=== PATIENT | male | born 2000 | race Caucasian/White ===

== ENCOUNTER 2018-07-20 12:05 | Emergency (ER) | payer BC ==
[~2018-07-20] VITALS: Ht 165.1 cm; Wt 61.4 kg
[2018-07-20] MEDS ORDERED: PROAIR HFA0.09 MG/AC IH (12:28)
[2018-07-20 12:56] LABS: EOS # 0.1 (0.04-0.40); EOS % 1.4 % (0.0-4.0); HEMATOCRIT 46.9 % (36.0-47.0); HEMOGLOBIN 15.8 g/dL (12.5-16.1); LYMPH# 1.3 (1.50-4.00); MEAN CELL VOLUME 88 fl (78-95); MEAN CORPUSCULAR HEMOGLOBIN 30 pg (26-32); MEAN CORPUSCULAR HGB CONC 34 g/dL (33-37); MEAN PLATELET VOLUME 9.8 fl (7.4-10.4); MONO # 0.5 (0.20-0.80); NEU # 3.7 (1.40-6.50); PLATELET COUNT 244 K/mm3 (130-400); RED BLOOD COUNT 5.34 M/mm3 (4.20-5.60); RED CELL DISTRIBUTION WIDTH 12.4 % (11.5-14.5); WHITE BLOOD COUNT 5.6 K/mm3 (4.8-10.8)
[2018-07-20 13:09] LABS: ALBUMIN 5.1 g/dL (3.5-5.0); CALCIUM 10.5 mg/dL (8.4-10.2); POTASSIUM 3.6 mmol/L (3.6-5.0); TOTAL BILIRUBIN 1.6 mg/dL (0.2-1.3); TOTAL PROTEIN 8.2 g/dL (6.3-8.2)
[2018-07-20] MEDS ORDERED: KLONOPIN 0.5MG0.5 MG PO (13:57)
[2018-07-20 14:10] VITALS: BP 101/69
== END 2018-07-20 14:10 | disposition home or self-care (01) ==
LOC: ED 12:05
PROVIDERS: Nurse Practitioner Primary Care
DX: F41.0 Panic disorder [episodic paroxysmal anxiety] (principal); F17.210 Nicotine dependence, cigarettes, uncomplicated

== ENCOUNTER 2018-08-03 15:27 | Emergency (ER) | payer BC ==
[~2018-08-03] VITALS: Ht 165.1 cm; Wt 60.9 kg
[~2018-08-03 15:27] MED LIST: KLONOPIN 0.5MG0.5 MG PO; PROAIR HFA0.09 MG/AC IH
[2018-08-03 17:05] LABS: EOS % 0.5 % (0.0-4.0); HEMATOCRIT 47.2 % (36.0-47.0); HEMOGLOBIN 15.9 g/dL (12.5-16.1); LYMPH# 1.5 (1.50-4.00); MEAN CELL VOLUME 89 fl (78-95); MEAN CORPUSCULAR HEMOGLOBIN 30 pg (26-32); MEAN CORPUSCULAR HGB CONC 34 g/dL (33-37); MEAN PLATELET VOLUME 9.5 fl (7.4-10.4); MONO # 0.5 (0.20-0.80); NEU # 5.5 (1.40-6.50); PLATELET COUNT 287 K/mm3 (130-400); RED BLOOD COUNT 5.31 M/mm3 (4.20-5.60); RED CELL DISTRIBUTION WIDTH 12.6 % (11.5-14.5); WHITE BLOOD COUNT 7.5 K/mm3 (4.8-10.8)
[2018-08-03 18:09] LABS: ERYTHROCYTE SEDIMENTATION RATE 2 mm/hr (0-15)
[2018-08-03 18:13] VITALS: BP 117/76
== END 2018-08-03 18:12 | disposition home or self-care (01) ==
LOC: ED 15:27
PROVIDERS: Nurse Practitioner Family
DX: R07.89 Other chest pain (principal); J45.909 Unspecified asthma, uncomplicated; F41.9 Anxiety disorder, unspecified; F17.210 Nicotine dependence, cigarettes, uncomplicated
CPT/HCPCS: J1885